=== PATIENT | male | born 1940 | race Two or more races ===

== ENCOUNTER 2024-07-12 21:29 | Inpatient (IN) | payer OTHER, MEDICAID ==
[~2024-07-12] VITALS: Ht 165.1 cm; Wt 88.5 kg
[2024-07-12 22:38] LABS: Basophils # (auto) 0 10 ^3/uL (0-0.2); Eosinophils # (auto) 0 10 ^3/uL (0-0.8); Lymphocytes # (auto) 0.4 10 ^3/uL (0.4-5.4); Mean Corpuscular Hgb Conc. 34.9 g/dL (32.0-36.0); Red Blood Cells 3.73 10^6/uL (4.5-5.90)
[2024-07-12 22:40] LABS: Basophils % (auto) 0.1 % (0.0-2.0); Hematocrit 40.1 % (41.0-53.0); Lymphocytes % (auto) 4.7 % (10.0-50.0); Mean Corpuscular Hemoglobin 37.4 pg (28.0-32.0); Mean Corpuscular Volume 107.3 fL (80.0-100.0); Monocytes # (auto) 0.6 10 ^3/uL (0-1.3); Monocytes % (auto) 7.2 % (0.0-12.0); Neutrophils # (auto) 7.3 10 ^3/uL (1.6-8.6); Platelet Count (auto) 168 10^3/uL (140-450); Red Cell Distribution Width 15.3 % (11.8-14.3); White Blood Cell 8.3 10^3/uL (4.4-10.8)
[2024-07-12 22:54] LABS: Alanine Aminotransferase 20 U/L (7-40); Albumin 4.3 g/dL (3.2-4.8); Alkaline Phosphatase 119 U/L (46-116); Anion Gap 8 (5-15); Aspartate Aminotransferase 20 U/L (13-40); BUN/Creatinine Ratio 17.4 (10.0-20.0); Blood Urea Nitrogen 24 mg/dL (9-23); Calcium 9.6 mg/dL (8.7-10.4); Carbon Dioxide 25 mmol/L (20-30); Chloride 100 mmol/L (98-107); Glucose 179 mg/dL (74-106); Lipase 26 U/L (12-53); Potassium 4.4 mmol/L (3.5-5.1); Sodium 133 mmol/L (136-145)
[2024-07-12 22:55] LABS: Bilirubin, Total 0.8 mg/dL (0.2-1.0); Total Protein 7.3 g/dL (5.7-8.2)
[2024-07-12 23:01] LABS: Lactic Acid w/Reflex 2.4 mmol/L (0.4-2.0)
[2024-07-12] MEDS: IPRATROPIUM BROM 0.5 MG/2.5ML INH SOL NEB ONE (23:29)
[2024-07-12] MEDS: ALBUTEROL SULF 2.5 MG/0.5ML(0.5%) NEB SOLN NEB ONE (23:29)
[2024-07-13] VITALS: PULSE 80; RESP 16; O2SAT 96
[2024-07-13] MEDS: ONDANSETRON HCL 4 MG/2 ML VIAL IV ONE (00:07)
[2024-07-13] MEDS: MORPHINE SULFATE 4 MG/ML SYR/VIAL IV ONE ×2 (00:08→04:00)
[2024-07-13] MEDS: cefTRIAXone 1GM/50ML D5W 50 ML IV ONE (04:00)
[2024-07-13] MEDS: AZITHROMYCIN 500MG/ 250ML 250 ML IV ONE (04:42)
[2024-07-13 07:30] VITALS: PULSE 73; RESP 12; O2SAT 95
[2024-07-13 13:27] LABS: Chloride 100 mmol/L (98-107); Potassium 4.5 mmol/L (3.5-5.1); Sodium 133 mmol/L (136-145)
[2024-07-13 13:28] LABS: Anion Gap 9 (5-15); Carbon Dioxide 24 mmol/L (20-30)
[2024-07-13] MEDS ORDERED: HYDROmorphone HCL 2 MG/ML VL/or syr IV PRN (13:30)
[2024-07-13 13:33] LABS: Glucose 192 mg/dL (74-106)
[2024-07-13 13:34] LABS: BUN/Creatinine Ratio 17.6 (10.0-20.0); Blood Urea Nitrogen 26 mg/dL (9-23)
[2024-07-13] MEDS: SODIUM CHLOR 0.9% PF (SALINE LOCK) 10ML VIAL/SYR IV SCH (14:00)
[2024-07-13] MEDS: SODIUM CHLORIDE 0.9% 1,000 ML IV ONE (16:05)
[2024-07-13 17:55] VITALS: BP 160/77; PULSE 81; RESP 20; TEMP 99.1; O2SAT 93
[2024-07-13] MEDS: HYDROcodone-ACET 5/325MG TAB PO PRN (18:48)
[2024-07-13 21:00] VITALS: BP 147/74; PULSE 78; RESP 20; TEMP 98.8; O2SAT 91
[2024-07-13] MEDS: ACETAMINOPHEN 325 MG TAB PO PRN (21:13)
[2024-07-14] VITALS (7 sets, daily range): BP systolic 102–156; BP diastolic 62–91; PULSE 54–72; RESP 16–20; TEMP 97.7–98.8; O2SAT 91–100
[2024-07-14 06:33] LABS: Basophils # (auto) 0 10 ^3/uL (0-0.2); Eosinophils # (auto) 0.1 10 ^3/uL (0-0.8); Nucleated Red Blood Cells % 0.1 %; White Blood Cell 5.8 10^3/uL (4.4-10.8)
[2024-07-14 06:35] LABS: Alanine Aminotransferase 17 U/L (7-40); Albumin 3.3 g/dL (3.2-4.8); Alkaline Phosphatase 86 U/L (46-116); Anion Gap 7 (5-15); Aspartate Aminotransferase 21 U/L (13-40); BUN/Creatinine Ratio 20.9 (10.0-20.0); Blood Urea Nitrogen 23 mg/dL (9-23); Calcium 8.6 mg/dL (8.7-10.4); Carbon Dioxide 28 mmol/L (20-30); Chloride 100 mmol/L (98-107); Glucose 107 mg/dL (74-106); Potassium 4.1 mmol/L (3.5-5.1); Sodium 135 mmol/L (136-145)
[2024-07-14 06:36] LABS: Total Protein 5.6 g/dL (5.7-8.2)
[2024-07-14 06:39] LABS: Basophils % (auto) 0.5 % (0.0-2.0); Hematocrit 33.2 % (41.0-53.0); Hemoglobin 11.8 g/dL (13.5-17.5); Lymphocytes % (auto) 34.9 % (10.0-50.0); Mean Corpuscular Hemoglobin 38.1 pg (28.0-32.0); Mean Corpuscular Hgb Conc. 35.6 g/dL (32.0-36.0); Mean Corpuscular Volume 107.1 fL (80.0-100.0); Monocytes # (auto) 0.6 10 ^3/uL (0-1.3); Monocytes % (auto) 9.8 % (0.0-12.0); Neutrophils # (auto) 3.1 10 ^3/uL (1.6-8.6); Neutrophils % (auto) 52.8 % (37.0-80.0); Platelet Count (auto) 134 10^3/uL (140-450)
[2024-07-14] MEDS: THIAMINE HCL 100 MG TAB PO SCH (09:54)
[2024-07-14] MEDS: FOLIC ACID 1 MG TAB PO SCH (09:54)
[2024-07-14] MEDS: PANTOPRAZOLE 40 MG/10 ML VIAL INJ IV SCH (09:54)
[2024-07-15] VITALS (7 sets, daily range): BP systolic 136–188; BP diastolic 69–85; PULSE 55–78; RESP 14–19; TEMP 97.7–98.4; O2SAT 93–98
[2024-07-15 03:35] LABS: Urine Blood Negative /uL (Negative); Urine Clarity Clear (Clear); Urine Color Light-Yellow (Yellow); Urine Protein, UAD Negative (Negative); Urine Specific Gravity 1.007 (1.001-1.035); Urine Urobilinogen Normal (Negative)
[2024-07-15 05:14] LABS: Urine Bacteria NONE SEEN /hpf (None Seen); Urine WBC 0 /hpf (0 - 3)
[2024-07-15 07:18] LABS: Alanine Aminotransferase 15 U/L (7-40); Alkaline Phosphatase 81 U/L (46-116); Anion Gap 5 (5-15); BUN/Creatinine Ratio 15.2 (10.0-20.0); Blood Urea Nitrogen 14 mg/dL (9-23); Calcium 8.7 mg/dL (8.7-10.4); Carbon Dioxide 25 mmol/L (20-30); Chloride 103 mmol/L (98-107); Glucose 97 mg/dL (74-106); Potassium 3.9 mmol/L (3.5-5.1); Sodium 133 mmol/L (136-145)
[2024-07-15 07:20] LABS: Albumin 3.4 g/dL (3.2-4.8); Aspartate Aminotransferase 29 U/L (13-40); Bilirubin, Total 0.7 mg/dL (0.2-1.0); Total Protein 5.7 g/dL (5.7-8.2)
[2024-07-15 07:26] LABS: Basophils # (auto) 0 10 ^3/uL (0-0.2); Basophils % (auto) 0.7 % (0.0-2.0); Eosinophils # (auto) 0.2 10 ^3/uL (0-0.8); Hematocrit 34.5 % (41.0-53.0); Hemoglobin 12.3 g/dL (13.5-17.5); Mean Corpuscular Hgb Conc. 35.5 g/dL (32.0-36.0); Neutrophils # (auto) 2.7 10 ^3/uL (1.6-8.6)
[2024-07-15 07:28] LABS: Eosinophils % (auto) 3.6 % (0.0-7.0); Lymphocytes # (auto) 1.8 10 ^3/uL (0.4-5.4); Lymphocytes % (auto) 34.9 % (10.0-50.0); Mean Corpuscular Hemoglobin 37.6 pg (28.0-32.0); Mean Corpuscular Volume 106.1 fL (80.0-100.0); Monocytes # (auto) 0.5 10 ^3/uL (0-1.3); Monocytes % (auto) 8.8 % (0.0-12.0); Platelet Count (auto) 150 10^3/uL (140-450); Red Blood Cells 3.26 10^6/uL (4.5-5.90); Red Cell Distribution Width 14.7 % (11.8-14.3); White Blood Cell 5.2 10^3/uL (4.4-10.8)
[2024-07-15] MEDS: hydrALAZINE HCL 20 MG/ML VL IV PRN (13:13)
[2024-07-15 15:29] LABS: Folate (Folic Acid) 6.41 ng/mL (>5.38)
[2024-07-15] MEDS: LORazepam 2MG/ML-1ML VIAL IV PRN (16:09)
[2024-07-15] MEDS: IOHEXOL 300 MG/ML 100ML BOTTLE IJ ONE (20:14)
[2024-07-16] VITALS (8 sets, daily range): BP systolic 145–161; BP diastolic 67–77; PULSE 67–88; RESP 16–19; TEMP 97.6–98.8; O2SAT 96–99
[2024-07-16 07:28] LABS: Basophils # (auto) 0 10 ^3/uL (0-0.2); Basophils % (auto) 0.6 % (0.0-2.0); Eosinophils # (auto) 0.2 10 ^3/uL (0-0.8); Eosinophils % (auto) 2.5 % (0.0-7.0); Lymphocytes # (auto) 1.4 10 ^3/uL (0.4-5.4)
[2024-07-16 07:30] LABS: Hematocrit 38.6 % (41.0-53.0); Hemoglobin 13.5 g/dL (13.5-17.5); Mean Corpuscular Hemoglobin 37.5 pg (28.0-32.0); Mean Corpuscular Hgb Conc. 35.1 g/dL (32.0-36.0); Mean Corpuscular Volume 106.8 fL (80.0-100.0); Monocytes # (auto) 0.5 10 ^3/uL (0-1.3); Monocytes % (auto) 7.1 % (0.0-12.0); Neutrophils # (auto) 5.2 10 ^3/uL (1.6-8.6); Neutrophils % (auto) 70.8 % (37.0-80.0); Platelet Count (auto) 177 10^3/uL (140-450); Red Blood Cells 3.61 10^6/uL (4.5-5.90); Red Cell Distribution Width 15.1 % (11.8-14.3); White Blood Cell 7.4 10^3/uL (4.4-10.8)
[2024-07-16 07:46] LABS: Alanine Aminotransferase 18 U/L (7-40); Albumin 3.5 g/dL (3.2-4.8); Alkaline Phosphatase 84 U/L (46-116); Anion Gap 7 (5-15); Aspartate Aminotransferase 21 U/L (13-40); BUN/Creatinine Ratio 13.3 (10.0-20.0); Blood Urea Nitrogen 13 mg/dL (9-23); Calcium 8.9 mg/dL (8.7-10.4); Carbon Dioxide 25 mmol/L (20-30); Chloride 105 mmol/L (98-107); Glucose 117 mg/dL (74-106); Potassium 3.9 mmol/L (3.5-5.1); Sodium 137 mmol/L (136-145)
[2024-07-16 07:47] LABS: Bilirubin, Total 0.6 mg/dL (0.2-1.0)
[2024-07-16] MEDS: NIFEdipine ER 30 MG TAB PO SCH (09:27)
[2024-07-16] MEDS: levoFLOXacin 500MG 100 ML IV SCH (17:29)
[2024-07-16] MEDS ORDERED: [UNRECOGNIZED DRUG - CODE] OP ×2 (19:22)
[2024-07-16] MEDS ORDERED: PRED1DRO OP (19:22)
[2024-07-16] MEDS: metroNIDAZOLE 500MG/100ML 100 ML IV SCH (19:58)
[2024-07-17] VITALS (8 sets, daily range): BP systolic 110–158; BP diastolic 47–66; PULSE 67–81; RESP 16–20; TEMP 97.6–98.1; O2SAT 94–100
[2024-07-17 06:25] LABS: Basophils # (auto) 0 10 ^3/uL (0-0.2); Eosinophils # (auto) 0.2 10 ^3/uL (0-0.8); Lymphocytes # (auto) 1.3 10 ^3/uL (0.4-5.4); Neutrophils # (auto) 3.5 10 ^3/uL (1.6-8.6); White Blood Cell 5.4 10^3/uL (4.4-10.8)
[2024-07-17 06:29] LABS: Alanine Aminotransferase 18 U/L (7-40); Albumin 3.5 g/dL (3.2-4.8); Alkaline Phosphatase 83 U/L (46-116); Anion Gap 7 (5-15); BUN/Creatinine Ratio 11.2 (10.0-20.0); Basophils % (auto) 0.5 % (0.0-2.0); Blood Urea Nitrogen 11 mg/dL (9-23); Calcium 9.2 mg/dL (8.7-10.4); Carbon Dioxide 25 mmol/L (20-30); Chloride 104 mmol/L (98-107); Eosinophils % (auto) 2.8 % (0.0-7.0); Glucose 126 mg/dL (74-106); Hematocrit 37.1 % (41.0-53.0); Hemoglobin 13.2 g/dL (13.5-17.5); Lymphocytes % (auto) 24.4 % (10.0-50.0); Mean Corpuscular Hemoglobin 37.7 pg (28.0-32.0); Mean Corpuscular Hgb Conc. 35.5 g/dL (32.0-36.0); Mean Corpuscular Volume 106.2 fL (80.0-100.0); Monocytes # (auto) 0.4 10 ^3/uL (0-1.3); Neutrophils % (auto) 64.3 % (37.0-80.0); Platelet Count (auto) 177 10^3/uL (140-450); Potassium 4.1 mmol/L (3.5-5.1); Red Blood Cells 3.49 10^6/uL (4.5-5.90); Red Cell Distribution Width 15.1 % (11.8-14.3); Sodium 136 mmol/L (136-145)
[2024-07-17 06:30] LABS: Aspartate Aminotransferase 15 U/L (13-40); Bilirubin, Total 0.6 mg/dL (0.2-1.0); Total Protein 5.9 g/dL (5.7-8.2)
[2024-07-17] MEDS: ONDANSETRON HCL 4 MG/2 ML VIAL IV PRN (19:57)
[2024-07-18] VITALS (8 sets, daily range): BP systolic 108–153; BP diastolic 56–70; PULSE 57–91; RESP 17–22; TEMP 97.6–98.9; O2SAT 91–99
[2024-07-18 06:03] LABS: Basophils # (auto) 0 10 ^3/uL (0-0.2); Eosinophils # (auto) 0.3 10 ^3/uL (0-0.8); Hematocrit 36.9 % (41.0-53.0); Lymphocytes # (auto) 1.6 10 ^3/uL (0.4-5.4); Mean Corpuscular Hemoglobin 37.4 pg (28.0-32.0); Monocytes # (auto) 0.5 10 ^3/uL (0-1.3)
[2024-07-18 06:08] LABS: Basophils % (auto) 0.8 % (0.0-2.0); Eosinophils % (auto) 5.3 % (0.0-7.0); Lymphocytes % (auto) 29.6 % (10.0-50.0); Mean Corpuscular Hgb Conc. 35.4 g/dL (32.0-36.0); Mean Corpuscular Volume 105.7 fL (80.0-100.0); Monocytes % (auto) 9.6 % (0.0-12.0); Neutrophils % (auto) 54.7 % (37.0-80.0); Nucleated Red Blood Cells % 0.1 %; Platelet Count (auto) 183 10^3/uL (140-450); Red Blood Cells 3.49 10^6/uL (4.5-5.90); Red Cell Distribution Width 14.9 % (11.8-14.3); White Blood Cell 5.5 10^3/uL (4.4-10.8)
[2024-07-18 06:22] LABS: Alanine Aminotransferase 10 U/L (7-40); Albumin 3.5 g/dL (3.2-4.8); Alkaline Phosphatase 84 U/L (46-116); Anion Gap 6 (5-15); Aspartate Aminotransferase 12 U/L (13-40); BUN/Creatinine Ratio 7.3 (10.0-20.0); Bilirubin, Total 0.5 mg/dL (0.2-1.0); Blood Urea Nitrogen 8 mg/dL (9-23); Calcium 9.2 mg/dL (8.7-10.4); Carbon Dioxide 25 mmol/L (20-30); Chloride 106 mmol/L (98-107); Glucose 110 mg/dL (74-106); Potassium 4.1 mmol/L (3.5-5.1); Sodium 137 mmol/L (136-145); Total Protein 5.9 g/dL (5.7-8.2)
[2024-07-18] MEDS: LIDOCAINE 5% TOPICAL PATCH TOP SCH (09:37)
[2024-07-18] MEDS: DOCUSATE SOD 100 MG CAP PO PRN (09:37)
[2024-07-19] VITALS (8 sets, daily range): BP systolic 126–157; BP diastolic 47–71; PULSE 75–108; RESP 18–20; TEMP 98.2–98.9; O2SAT 92–97
[2024-07-19] MEDS: ENOXAPARIN SOD 40 MG/0.4 ML SYRINGE SC SCH (15:55)
[2024-07-19] MEDS: CYANOCOBALAMIN (B-12) 1000 MCG/1 ML VIAL IM ONE (15:55)
[2024-07-19] MEDS: MORPHINE SULFATE INJ 2 MG/ml SYRG IV PRN (23:59)
[2024-07-20] VITALS (8 sets, daily range): BP systolic 116–146; BP diastolic 9–82; PULSE 57–98; RESP 16–20; TEMP 97.8–98.5; O2SAT 94–98
[2024-07-20] MEDS: PANTOPRAZOLE 40 MG TAB PO SCH (05:43)
[2024-07-20] MEDS: LACTULOSE 20Gm/30ML SOLN PO ONE (14:43)
[2024-07-20] MEDS: chlordiazePOXIDE HCL 25 MG CAP PO PRN (14:44)
[2024-07-20] MEDS: chlordiazePOXIDE HCL 25 MG CAP PO SCH (14:45)
[2024-07-20] MEDS: FOLIC ACID 1 MG, MULTIPLE VITAMIN 10 ML, MAGNESIUM SULF SDV 50% 8 MEQ, THIAMINE INJ 100... INJ SCH (18:05)
[2024-07-20] MEDS: LACTULOSE 20Gm/30ML SOLN PO SCH (22:03)
[2024-07-21] VITALS (20 sets, daily range): BP systolic 118–151; BP diastolic 62–95; PULSE 93–125; RESP 18–48; TEMP 97.4–98.5; O2SAT 95–98
[2024-07-21] MEDS: diphenhdrAMINE HCL 50 MG/1 ML VL IV PRN (11:12)
[2024-07-21 11:30] LABS: Basophils # (auto) 0 10 ^3/uL (0-0.2); Basophils % (auto) 0.1 % (0.0-2.0); Eosinophils # (auto) 0 10 ^3/uL (0-0.8); Eosinophils % (auto) 0.1 % (0.0-7.0); Hemoglobin 14.4 g/dL (13.5-17.5); Lymphocytes # (auto) 0.6 10 ^3/uL (0.4-5.4); Lymphocytes % (auto) 7.4 % (10.0-50.0); Mean Corpuscular Hemoglobin 36.9 pg (28.0-32.0); Mean Corpuscular Volume 105.3 fL (80.0-100.0); Monocytes # (auto) 0.5 10 ^3/uL (0-1.3); Monocytes % (auto) 5.8 % (0.0-12.0); Neutrophils # (auto) 6.7 10 ^3/uL (1.6-8.6); Neutrophils % (auto) 86.6 % (37.0-80.0); Platelet Count (auto) 215 10^3/uL (140-450); White Blood Cell 7.8 10^3/uL (4.4-10.8)
[2024-07-21 11:42] LABS: INR 1.1 (0.9-1.15); Partial Thromboplastin Time 29.8 SEC (24.5-34.5); Prothrombin Time 11.6 sec (9.3-11.8)
[2024-07-21 11:45] LABS: Alanine Aminotransferase 15 U/L (7-40); Albumin 3.9 g/dL (3.2-4.8); Alkaline Phosphatase 135 U/L (46-116); Anion Gap 16 (5-15); Aspartate Aminotransferase 31 U/L (13-40); BUN/Creatinine Ratio 5.9 (10.0-20.0); Blood Urea Nitrogen 7 mg/dL (9-23); Calcium 9.5 mg/dL (8.7-10.4); Chloride 105 mmol/L (98-107); Glucose 159 mg/dL (74-106); Potassium 3.7 mmol/L (3.5-5.1); Sodium 134 mmol/L (136-145)
[2024-07-21 11:46] LABS: Bilirubin, Total 0.7 mg/dL (0.2-1.0); Total Protein 6.8 g/dL (5.7-8.2)
[2024-07-21 11:48] LABS: Carbon Dioxide 13 mmol/L (20-30)
[2024-07-21 12:06] LABS: Vitamin D 25-Hydroxy 26 ng/mL (.); Vitamin D-2 25-Hydroxy <1.0 ng/mL (.); Vitamin D-3 25-Hydroxy 26 ng/mL (.)
[2024-07-21] MEDS: D5W/SOD CHL 0.45% 1,000 ML IV SCH (12:48)
[2024-07-21] MEDS: ACCU-CHEK COMFORT CURVE STRIP VI SCH (12:48)
[2024-07-21] MEDS: LACTULOSE 20Gm/30ML SOLN PO ONE (13:00)
[2024-07-21] MEDS: FLEET ENEMA(ADULT) 135 ML PR ONE ×2 (13:00→20:34)
[2024-07-21] MEDS: InsuLIN REG 1unit/0.01ml Soln (100units/ml) SC SCH (15:08)
[2024-07-21] MEDS: AMIODARONE BOLUS KIT 100 ML IV ONE (17:29)
[2024-07-21] MEDS: AMIODARONE 450mg/250ml AE 250 ML IV SCH ×2 (17:41→23:04)
[2024-07-21] MEDS: METOPROLOL TARTRATE 1MG/1ML-5ML VIAL IV SCH (18:00)
[2024-07-21] MEDS: KETOROLAC TROMETH 30 MG/ML 1ML VIAL IV PRN (20:55)
[2024-07-21] MEDS: ENOXAPARIN SOD 80 MG/0.8ML SYRINGE SC SCH (22:39)
[2024-07-22] VITALS (42 sets, daily range): BP systolic 91–182; BP diastolic 41–88; PULSE 71–104; RESP 10–40; TEMP 92.7–98.8; O2SAT 92–100
[2024-07-22] MEDS: ALBUTEROL SULF 2.5 MG/0.5ML(0.5%) NEB SOLN NEB PRN (04:15)
[2024-07-22] MEDS: IPRATROPIUM BROM 0.5 MG/2.5ML INH SOL NEB PRN (04:15)
[2024-07-22 05:17] LABS: Basophils # (auto) 0 10 ^3/uL (0-0.2); Eosinophils # (auto) 0 10 ^3/uL (0-0.8); Hemoglobin 15.4 g/dL (13.5-17.5); Lymphocytes # (auto) 0.5 10 ^3/uL (0.4-5.4); Monocytes # (auto) 0.5 10 ^3/uL (0-1.3); Platelet Count (auto) 213 10^3/uL (140-450); White Blood Cell 10.1 10^3/uL (4.4-10.8)
[2024-07-22 05:19] LABS: Hematocrit 43.2 % (41.0-53.0); Lymphocytes % (auto) 4.8 % (10.0-50.0); Mean Corpuscular Hemoglobin 37.5 pg (28.0-32.0); Mean Corpuscular Hgb Conc. 35.6 g/dL (32.0-36.0); Mean Corpuscular Volume 105.4 fL (80.0-100.0); Monocytes % (auto) 5.1 % (0.0-12.0); Neutrophils # (auto) 9.1 10 ^3/uL (1.6-8.6); Neutrophils % (auto) 90.1 % (37.0-80.0)
[2024-07-22 05:31] LABS: Alanine Aminotransferase 14 U/L (7-40); Albumin 3.6 g/dL (3.2-4.8); Alkaline Phosphatase 168 U/L (46-116); Anion Gap 15 (5-15); Aspartate Aminotransferase 31 U/L (13-40); Blood Urea Nitrogen 15 mg/dL (9-23); Calcium 8.9 mg/dL (8.7-10.4); Carbon Dioxide 15 mmol/L (20-30); Chloride 101 mmol/L (98-107); Glucose 83 mg/dL (74-106); Potassium 3.7 mmol/L (3.5-5.1); Sodium 131 mmol/L (136-145)
[2024-07-22 05:32] LABS: Bilirubin, Total 0.7 mg/dL (0.2-1.0); Total Protein 6.3 g/dL (5.7-8.2)
[2024-07-22] MEDS: FUROSEMIDE 20 MG/2 ML VIAL IV ONE (08:17)
[2024-07-22] MEDS: ACETAMINOPHEN IV 1000 MG/100ML (10MG/ML) IV PRN (09:08)
[2024-07-22 11:11] LABS: Magnesium 2.1 mg/dL (1.6-2.6)
[2024-07-22 12:08] LABS: Base Excess -11.8 mmol/L (-2.0-3.0)
[2024-07-22] MEDS: FLEET MINERAL OIL ENEMA 133 ML PR ONE (13:34)
[2024-07-22 14:46] LABS: Alanine Aminotransferase 22 U/L (7-40); Albumin 3.4 g/dL (3.2-4.8); Alkaline Phosphatase 202 U/L (46-116); Anion Gap 17 (5-15); Aspartate Aminotransferase 86 U/L (13-40); BUN/Creatinine Ratio 7.8 (10.0-20.0); Blood Urea Nitrogen 20 mg/dL (9-23); Calcium 8.5 mg/dL (8.7-10.4); Carbon Dioxide 13 mmol/L (20-30); Chloride 98 mmol/L (98-107); Glucose 132 mg/dL (74-106); Potassium 4.8 mmol/L (3.5-5.1); Sodium 128 mmol/L (136-145)
[2024-07-22 14:47] LABS: Total Protein 5.9 g/dL (5.7-8.2)
[2024-07-22] MEDS: NOREPINEPHRINE 8 MG/250ML KIT 250 ML IV SCH (15:30)
[2024-07-22] MEDS: SODIUM BICARB 8.4% 50Meq/50ml SYR Vial IV ONE ×6 (15:30→23:58)
[2024-07-22] MEDS: SODIUM CHLORIDE 0.9% 500 ML IV ONE (15:43)
[2024-07-22] MEDS: NOREPINEPHRINE 8 MG/250ML KIT 250 ML IV ONE (15:52)
[2024-07-22] MEDS: SODIUM BICARB 50mEq/50ml Vial 100 ML in D5W 5% 1,000 ML IV SCH (16:18)
[2024-07-22] MEDS ORDERED: fentaNYL CITRATE 100 MCG/2 ML VL ONE (18:13)
[2024-07-22] MEDS: fentaNYL Drip 2500mCg/250mlNS 250 ML IV SCH (21:45)
[2024-07-22 22:22] LABS: Base Excess -14.3 mmol/L (-2.0-3.0)
[2024-07-22 22:27] LABS: Basophils # (auto) 0 10 ^3/uL (0-0.2); Basophils % (auto) 0.2 % (0.0-2.0); Eosinophils # (auto) 0 10 ^3/uL (0-0.8); Eosinophils % (auto) 0.1 % (0.0-7.0); Hematocrit 34.8 % (41.0-53.0); Hemoglobin 11.8 g/dL (13.5-17.5); Lymphocytes # (auto) 0.6 10 ^3/uL (0.4-5.4); Lymphocytes % (auto) 14.3 % (10.0-50.0); Mean Corpuscular Hemoglobin 36.5 pg (28.0-32.0); Mean Corpuscular Volume 107.3 fL (80.0-100.0); Monocytes # (auto) 0.1 10 ^3/uL (0-1.3); Monocytes % (auto) 2.8 % (0.0-12.0); Neutrophils # (auto) 3.4 10 ^3/uL (1.6-8.6); Neutrophils % (auto) 82.6 % (37.0-80.0); Nucleated Red Blood Cells % 0.1 %; Platelet Count (auto) 169 10^3/uL (140-450); Red Blood Cells 3.25 10^6/uL (4.5-5.90); Red Cell Distribution Width 15.5 % (11.8-14.3); White Blood Cell 4.1 10^3/uL (4.4-10.8)
[2024-07-22] MEDS: SODIUM CHLORIDE 0.9% 1,000 ML IV SCH (22:40)
[2024-07-22 22:44] LABS: Alanine Aminotransferase 65 U/L (7-40); Albumin 2.5 g/dL (3.2-4.8); Anion Gap 13 (5-15); Aspartate Aminotransferase 405 U/L (13-40); BUN/Creatinine Ratio 9.4 (10.0-20.0); Blood Urea Nitrogen 21 mg/dL (9-23); Calcium 6.4 mg/dL (8.7-10.4); Carbon Dioxide 17 mmol/L (20-30); Glucose 135 mg/dL (74-106); Potassium 3.9 mmol/L (3.5-5.1)
[2024-07-22 22:45] LABS: Bilirubin, Total 1.3 mg/dL (0.2-1.0); Chloride 108 mmol/L (98-107); Sodium 138 mmol/L (136-145)
[2024-07-22] MEDS: ALBUMIN 25% 100 ML IV ONE (22:46)
[2024-07-22 23:01] LABS: Alkaline Phosphatase 149 U/L (46-116)
[2024-07-23] VITALS (109 sets, daily range): BP systolic 81–171; BP diastolic 31–82; PULSE 79–124; RESP 14–30; TEMP 94.8–100; O2SAT 94–100
[2024-07-23 02:08] LABS: Base Excess -6.4 mmol/L (-2.0-3.0)
[2024-07-23 04:50] LABS: Basophils # (auto) 0 10 ^3/uL (0-0.2); Basophils % (auto) 0.1 % (0.0-2.0); Eosinophils # (auto) 0 10 ^3/uL (0-0.8); Hemoglobin 12.4 g/dL (13.5-17.5); Mean Corpuscular Hemoglobin 36.4 pg (28.0-32.0); Monocytes # (auto) 0.2 10 ^3/uL (0-1.3); White Blood Cell 3.7 10^3/uL (4.4-10.8)
[2024-07-23 04:52] LABS: Hematocrit 36.2 % (41.0-53.0); Lymphocytes # (auto) 0.6 10 ^3/uL (0.4-5.4); Lymphocytes % (auto) 15.7 % (10.0-50.0); Mean Corpuscular Hgb Conc. 34.3 g/dL (32.0-36.0); Mean Corpuscular Volume 106.1 fL (80.0-100.0); Monocytes % (auto) 4.4 % (0.0-12.0); Neutrophils % (auto) 79.8 % (37.0-80.0); Nucleated Red Blood Cells % 0.1 %; Platelet Count (auto) 177 10^3/uL (140-450); Red Blood Cells 3.41 10^6/uL (4.5-5.90); Red Cell Distribution Width 15.6 % (11.8-14.3)
[2024-07-23 06:38] LABS: Base Excess -6.2 mmol/L (-2.0-3.0)
[2024-07-23 07:04] LABS: Alanine Aminotransferase 85 U/L (7-40); Albumin 2.5 g/dL (3.2-4.8); Alkaline Phosphatase 136 U/L (46-116); Anion Gap 11 (5-15); Aspartate Aminotransferase 442 U/L (13-40); BUN/Creatinine Ratio 10.1 (10.0-20.0); Bilirubin, Total 0.8 mg/dL (0.2-1.0); Blood Urea Nitrogen 24 mg/dL (9-23); Calcium 6.3 mg/dL (8.7-10.4); Carbon Dioxide 23 mmol/L (20-30); Chloride 107 mmol/L (98-107); Glucose 137 mg/dL (74-106); Potassium 3.7 mmol/L (3.5-5.1); Sodium 141 mmol/L (136-145); Total Protein 4.1 g/dL (5.7-8.2)
[2024-07-23] MEDS: PHENYLEPHRINE IV 250 ML IV SCH (07:45)
[2024-07-23] MEDS: FUROSEMIDE 40 MG/4 ML VIAL IV ONE (09:59)
[2024-07-23] MEDS ORDERED: ENOXAPARIN SOD 80 MG/0.8ML SYRINGE SC SCH (10:00)
[2024-07-23 13:08] LABS: Protein, Urine 115.8 mg/dL (0.0-11.9)
[2024-07-23 13:09] LABS: Protein, Urine 115.9 mg/dL (0.0-11.9)
[2024-07-23 13:10] LABS: Creatinine, Urine 80.08 mg/dL (30.0-125.0); Creatinine, Urine 80.83 mg/dL (30.0-125.0); Urine Protein/Creatinine Ratio 1.45
[2024-07-23 15:39] LABS: Hemoglobin 11.2 g/dL (13.5-17.5)
[2024-07-23 15:41] LABS: Hematocrit 32.5 % (41.0-53.0)
[2024-07-23] MEDS: BUMETANIDE 2.5mg/10ml (0.25 mg/ml) INJ IV ONE (15:58)
[2024-07-23 16:15] LABS: Urine Amorphous Crystal FEW /hpf (None Seen); Urine Bacteria FEW /hpf (None Seen); Urine Blood 3+ /uL (Negative); Urine Clarity Ex.Turbid (Clear); Urine Color Dark-Orange (Yellow); Urine Mucus FEW (None Seen); Urine Protein, UAD 1+ (Negative); Urine Specific Gravity 1.025 (1.001-1.035); Urine Urobilinogen Normal (Negative); Urine WBC 31 /hpf (0 - 3)
[2024-07-23] MEDS: DEXTROSE (50%) 50ML SYRG IV PRN (18:57)
[2024-07-23] MEDS ORDERED: TPN PER PHARMACY 0 ML IV SCH (20:15)
[2024-07-23] MEDS: AMINO ACID INFUSION IN D10W 1,000 ML IV SCH (20:30)
[2024-07-23] MEDS: CALCIUM GLUC 1,000mg/50ml-NS 50 ML IV SCH (21:15)
[2024-07-24] VITALS (104 sets, daily range): BP systolic 77–166; BP diastolic 27–66; PULSE 86–131; RESP 8–20; TEMP 98.2–99.5; O2SAT 94–100
[2024-07-24 03:43] LABS: Hematocrit 24.6 % (41.0-53.0)
[2024-07-24 03:45] LABS: Hemoglobin 8.5 g/dL (13.5-17.5); Mean Corpuscular Hemoglobin 37.1 pg (28.0-32.0); Mean Corpuscular Hgb Conc. 34.5 g/dL (32.0-36.0); Mean Corpuscular Volume 107.6 fL (80.0-100.0); Platelet Count (auto) 135 10^3/uL (140-450); Red Blood Cells 2.28 10^6/uL (4.5-5.90); Red Cell Distribution Width 16.2 % (11.8-14.3); White Blood Cell 5.9 10^3/uL (4.4-10.8)
[2024-07-24 03:52] LABS: Basophils % (manual) 0 (0.0-2.0); Blast Cells 0; Eosinophils % (manual) 0 (0-7); Metamyelocytes % 0; Promyelocytes % 0; Reactive Lymphocytes 0
[2024-07-24 04:02] LABS: Alanine Aminotransferase 75 U/L (7-40); Albumin 1.9 g/dL (3.2-4.8); Alkaline Phosphatase 96 U/L (46-116); Anion Gap 11 (5-15); Aspartate Aminotransferase 249 U/L (13-40); BUN/Creatinine Ratio 10.4 (10.0-20.0); Bilirubin, Total 0.5 mg/dL (0.2-1.0); Blood Urea Nitrogen 31 mg/dL (9-23); Carbon Dioxide 18 mmol/L (20-30); Chloride 111 mmol/L (98-107); Glucose 144 mg/dL (74-106); Magnesium 1.4 mg/dL (1.6-2.6); Phosphorus 6.2 mg/dL (2.4-5.1); Potassium 3.2 mmol/L (3.5-5.1); Sodium 140 mmol/L (136-145); Total Protein 3.2 g/dL (5.7-8.2)
[2024-07-24 04:04] LABS: Calcium 5.7 mg/dL (8.7-10.4)
[2024-07-24] MEDS: POTASSIUM CHL 20MEQ/100ML 100 ML IV ONE (05:30)
[2024-07-24] MEDS: CALCIUM GLUC 1,000mg/50ml-NS 50 ML IV SCH (05:40)
[2024-07-24] MEDS: MAGNESIUM SULFATE 1GM/100ML 100 ML IV SCH (05:55)
[2024-07-24 06:38] LABS: Band Neutrophils % (manual) 15; Lymphocytes % (manual) 20 (10.0-50.0); Macrocytosis Moderate; Monocytes % (manual) 6 (0-12); Myelocytes % 1; Platelet Estimate Decreased
[2024-07-24 06:39] LABS: Anisocytosis Slight; Large Platelets FEW
[2024-07-24] MEDS ORDERED: DEXTROSE (50%) 50ML SYRG IV SCH (09:45)
[2024-07-24] MEDS ORDERED: ENOXAPARIN SOD 30 MG/0.3 ML SYRINGE SC SCH (10:00)
[2024-07-24] MEDS: SODIUM BICARB 8.4% 50Meq/50ml SYR Vial IV ONE (10:04)
[2024-07-24] MEDS: CEFEPIME 2GM/50ML NS 50 ML IV SCH (10:18)
[2024-07-24] MEDS: InsuLIN REG 1unit/0.01ml Soln (100units/ml) SC SCH (11:39)
[2024-07-24] MEDS: ACCU-CHEK COMFORT CURVE STRIP VI SCH (11:40)
[2024-07-24] MEDS: BUMETANIDE 2.5mg/10ml (0.25 mg/ml) INJ IV ONE (14:54)
[2024-07-24] MEDS: VASOPRESSIN 20 UNITS in SODIUM CHL 0.9% 99 ML IV SCH (17:27)
[2024-07-24] MEDS: BUMETANIDE 2.5mg/10ml (0.25 mg/ml) INJ IV SCH (18:10)
[2024-07-24] MEDS: POTASSIUM ACETATE IV NR (20:00)
[2024-07-24] MEDS: CALCIUM GLUC IV NR (20:00)
[2024-07-24] MEDS: [UNRECOGNIZED DRUG - OTHER] IV NR (20:00)
[2024-07-24] MEDS: FAT EMULSION IV NR (20:00)
[2024-07-25] VITALS (107 sets, daily range): BP systolic 95–160; BP diastolic 24–77; PULSE 81–117; RESP 13–31; TEMP 98.2–99.1; O2SAT 89–98
[2024-07-25 04:42] LABS: Hemoglobin 8.5 g/dL (13.5-17.5); Mean Corpuscular Volume 107.9 fL (80.0-100.0); Platelet Count (auto) 106 10^3/uL (140-450)
[2024-07-25 04:45] LABS: Mean Corpuscular Hemoglobin 36.7 pg (28.0-32.0); Red Blood Cells 2.32 10^6/uL (4.5-5.90); Red Cell Distribution Width 16.5 % (11.8-14.3); White Blood Cell 4.1 10^3/uL (4.4-10.8)
[2024-07-25 04:47] LABS: Alanine Aminotransferase 72 U/L (7-40); Alkaline Phosphatase 91 U/L (46-116); Anion Gap 9 (5-15); BUN/Creatinine Ratio 12.5 (10.0-20.0); Calcium 7.1 mg/dL (8.7-10.4); Carbon Dioxide 20 mmol/L (20-30); Chloride 110 mmol/L (98-107); Glucose 165 mg/dL (74-106); Magnesium 1.8 mg/dL (1.6-2.6); Potassium 3.7 mmol/L (3.5-5.1); Sodium 139 mmol/L (136-145)
[2024-07-25 04:48] LABS: Albumin 1.9 g/dL (3.2-4.8); Aspartate Aminotransferase 170 U/L (13-40); Phosphorus 5.5 mg/dL (2.4-5.1)
[2024-07-25 04:49] LABS: Total Protein 3.4 g/dL (5.7-8.2)
[2024-07-25 04:52] LABS: Blood Urea Nitrogen 41 mg/dL (9-23)
[2024-07-25 04:53] LABS: Bilirubin, Total 0.6 mg/dL (0.2-1.0)
[2024-07-25 05:06] LABS: Basophils % (manual) 0 (0.0-2.0); Blast Cells 0; Metamyelocytes % 0; Promyelocytes % 0; Reactive Lymphocytes 0
[2024-07-25] MEDS: PANTOPRAZOLE 40 MG/10 ML VIAL INJ IV SCH (06:10)
[2024-07-25] MEDS: NOREPINEPHRINE 8 MG/250ML KIT 0 ML IV ONE (06:11)
[2024-07-25 06:44] LABS: Band Neutrophils % (manual) 7; Eosinophils % (manual) 1 (0-7); Lymphocytes % (manual) 20 (10.0-50.0); Monocytes % (manual) 11 (0-12); Myelocytes % 4
[2024-07-25 06:45] LABS: Anisocytosis Slight; Macrocytosis Moderate; Platelet Estimate Decreased
[2024-07-25 07:47] LABS: Base Excess -8.4 mmol/L (-2.0-3.0)
[2024-07-25] MEDS: SODIUM BICARB 8.4% 50Meq/50ml SYR Vial IV ONE (09:15)
[2024-07-25] MEDS: ALBUMIN 25% 100 ML IV ONE (09:16)
[2024-07-25] MEDS: cefTRIAXone 1GM/50ML D5W 50 ML IV ONE (10:49)
[2024-07-25] MEDS: MAGNESIUM SULFATE 1GM/100ML 100 ML IV ONE (10:50)
[2024-07-25 11:09] LABS: Base Excess -7.7 mmol/L (-2.0-3.0)
[2024-07-25] MEDS: PHENYLEPHRINE INJ 80 MG in SODIUM CHL 0.9% 242 ML IV SCH (12:17)
[2024-07-25] MEDS: NOREPINEPHRINE BITARTRATE 32 MG in SODIUM CHL 0.9% 218 ML IV SCH (12:17)
[2024-07-25] MEDS: SODIUM BICARB 50mEq/50ml Vial 150 ML in D5W 5% 1,000 ML IV SCH (15:32)
[2024-07-25] MEDS: BUMETANIDE INJECTION 25 MG in GIVE UN-DILUTED 0 ML IV SCH (16:31)
[2024-07-25] MEDS: ALBUMIN 25% 100 ML IV SCH (16:49)
[2024-07-25] MEDS: TPN PER PHARMACY IV NR (20:11)
[2024-07-26] VITALS (114 sets, daily range): BP systolic 11–169; BP diastolic 35–74; PULSE 81–118; RESP 14–42; TEMP 98.1–99.1; O2SAT 93–100
[2024-07-26 04:34] LABS: Basophils # (auto) 0 10 ^3/uL (0-0.2); Basophils % (auto) 0.1 % (0.0-2.0); Eosinophils # (auto) 0.1 10 ^3/uL (0-0.8); Hematocrit 20.8 % (41.0-53.0); Hemoglobin 7.3 g/dL (13.5-17.5); Lymphocytes # (auto) 0.8 10 ^3/uL (0.4-5.4); Lymphocytes % (auto) 17.1 % (10.0-50.0); Mean Corpuscular Hemoglobin 36.8 pg (28.0-32.0); Mean Corpuscular Hgb Conc. 35.1 g/dL (32.0-36.0); Mean Corpuscular Volume 104.9 fL (80.0-100.0); Monocytes # (auto) 0.4 10 ^3/uL (0-1.3); Monocytes % (auto) 9.7 % (0.0-12.0); Neutrophils # (auto) 3.2 10 ^3/uL (1.6-8.6); Neutrophils % (auto) 71.1 % (37.0-80.0); Nucleated Red Blood Cells % 1.8 %; Red Blood Cells 1.99 10^6/uL (4.5-5.90); Red Cell Distribution Width 16.2 % (11.8-14.3); White Blood Cell 4.5 10^3/uL (4.4-10.8)
[2024-07-26 04:53] LABS: Alanine Aminotransferase 49 U/L (7-40); Albumin 2.7 g/dL (3.2-4.8); Alkaline Phosphatase 77 U/L (46-116); Anion Gap 8 (5-15); Aspartate Aminotransferase 97 U/L (13-40); BUN/Creatinine Ratio 14.8 (10.0-20.0); Blood Urea Nitrogen 43 mg/dL (9-23); Calcium 7.9 mg/dL (8.7-10.4); Carbon Dioxide 26 mmol/L (20-30); Chloride 106 mmol/L (98-107); Glucose 161 mg/dL (74-106); Sodium 140 mmol/L (136-145)
[2024-07-26 04:54] LABS: Bilirubin, Total 1.1 mg/dL (0.2-1.0); Total Protein 4.2 g/dL (5.7-8.2)
[2024-07-26 05:19] LABS: Platelet Count (auto) 121 10^3/uL (140-450)
[2024-07-26 05:20] LABS: Macrocytosis Slight; Platelet Estimate Decreased
[2024-07-26 07:20] LABS: Pre Albumin < 5.0 md/dL (10.0-40.0)
[2024-07-26] MEDS: POTASSIUM CHL 20MEQ/100ML 100 ML IV SCH ×2 (08:17→12:00)
[2024-07-26] MEDS: cefTRIAXone 1GM/50ML D5W 50 ML IV SCH (08:25)
[2024-07-26] MEDS: SODIUM BICARB 50mEq/50ml Vial 150 ML in D5W 5% 1,000 ML IV SCH (08:26)
[2024-07-26 08:51] LABS: Base Excess -0.8 mmol/L (-2.0-3.0)
[2024-07-26] MEDS ORDERED: ENOXAPARIN SOD 100 MG/1 ML SYRINGE SC SCH (10:00)
[2024-07-26] MEDS: ALBUMIN 25% 100 ML IV SCH (15:15)
[2024-07-26] MEDS: PROPOFOL 100 ML IV SCH (19:45)
[2024-07-26] MEDS: TPN*HIGH CONC* PER PHARMACY IV NR (21:04)
[2024-07-27] VITALS (95 sets, daily range): BP systolic 95–224; BP diastolic 31–92; PULSE 78–117; RESP 16–33; TEMP 98.2–99.5; O2SAT 94–99
[2024-07-27] MEDS: POTASSIUM CHL 20MEQ/100ML 100 ML IV SCH (00:20)
[2024-07-27 05:28] LABS: Alanine Aminotransferase 36 U/L (7-40); Albumin 2.9 g/dL (3.2-4.8); Alkaline Phosphatase 71 U/L (46-116); Anion Gap 7 (5-15); Aspartate Aminotransferase 60 U/L (13-40); BUN/Creatinine Ratio 16.8 (10.0-20.0); Blood Urea Nitrogen 44 mg/dL (9-23); Calcium 8.5 mg/dL (8.7-10.4); Carbon Dioxide 28 mmol/L (20-30); Chloride 105 mmol/L (98-107); Glucose 143 mg/dL (74-106); Potassium 3.6 mmol/L (3.5-5.1); Sodium 140 mmol/L (136-145); Triglycerides 69 mg/dL (< 150)
[2024-07-27 05:29] LABS: Bilirubin, Total 2.7 mg/dL (0.2-1.0); Phosphorus 1.9 mg/dL (2.4-5.1); Total Protein 4.5 g/dL (5.7-8.2)
[2024-07-27 07:12] LABS: Base Excess 3.3 mmol/L (-2.0-3.0)
[2024-07-27 08:24] LABS: Basophils # (auto) 0 10 ^3/uL (0-0.2); Eosinophils # (auto) 0.1 10 ^3/uL (0-0.8); Hematocrit 27.2 % (41.0-53.0); Hemoglobin 9.6 g/dL (13.5-17.5); Lymphocytes # (auto) 0.9 10 ^3/uL (0.4-5.4); Monocytes # (auto) 0.4 10 ^3/uL (0-1.3); Platelet Count (auto) 40 10^3/uL (140-450); Red Blood Cells 2.87 10^6/uL (4.5-5.90); White Blood Cell 5.6 10^3/uL (4.4-10.8)
[2024-07-27 08:25] LABS: Basophils % (auto) 0.2 % (0.0-2.0); Eosinophils % (auto) 1.7 % (0.0-7.0); Lymphocytes % (auto) 15.3 % (10.0-50.0); Mean Corpuscular Hemoglobin 33.3 pg (28.0-32.0); Mean Corpuscular Hgb Conc. 35.2 g/dL (32.0-36.0); Mean Corpuscular Volume 94.7 fL (80.0-100.0); Monocytes % (auto) 6.9 % (0.0-12.0); Neutrophils # (auto) 4.3 10 ^3/uL (1.6-8.6); Neutrophils % (auto) 75.9 % (37.0-80.0); Red Cell Distribution Width 24.2 % (11.8-14.3)
[2024-07-27 08:57] LABS: Anisocytosis Slight
[2024-07-27 08:58] LABS: Ovalocytes FEW; Platelet Estimate Decreased; Tear Drop Cells FEW
[2024-07-27] MEDS: POTASSIUM PHOSPHATE 22 MEQ in SODIUM CHL 0.9% 100 ML IV ONE (10:12)
[2024-07-27] MEDS: TPN*HIGH CONC* PER PHARMACY IV NR (20:06)
== END 2024-07-27 21:47 | disposition short-term general hospital (02) | DRG 329 ==
LOC: ER 21:29 → OVERFLOW 07-13 13:26 → EAST 07-13 15:19 → TELE-EAST 07-21 15:49 → DOU IN ICU 07-21 17:10 → ICU WEST 07-22 21:12
PROVIDERS: ADMIT Internal Medicine; ATTEND Internal Medicine Pulmonary Disease
PROC: 02HV33Z Insertion of Infusion Device into Superior Vena Cava, Percutaneous Approach (ICD-10-PCS; 2024-07-13)
PROC: B548ZZA Ultrasonography of Superior Vena Cava, Guidance (ICD-10-PCS; 2024-07-13)
PROC: 0D9670Z Drainage of Stomach with Drainage Device, Via Natural or Artificial Opening (ICD-10-PCS; principal; 2024-07-21)
PROC: 5A1955Z Respiratory Ventilation, Greater than 96 Consecutive Hours (ICD-10-PCS; 2024-07-22)
PROC: 0BH17EZ Insertion of Endotracheal Airway into Trachea, Via Natural or Artificial Opening (ICD-10-PCS; 2024-07-22)
PROC: 0DTE0ZZ Resection of Large Intestine, Open Approach (ICD-10-PCS; 2024-07-22)
PROC: 30233N1 Transfusion of Nonautologous Red Blood Cells into Peripheral Vein, Percutaneous Approach (ICD-10-PCS; 2024-07-26)
DX: K63.89 Other specified diseases of intestine (principal); A41.9 Sepsis, unspecified organism; J96.01 Acute respiratory failure with hypoxia; G93.41 Metabolic encephalopathy; R65.21 Severe sepsis with septic shock; I62.01 Nontraumatic acute subdural hemorrhage; G93.5 Compression of brain; I63.9 Cerebral infarction, unspecified; E87.4 Mixed disorder of acid-base balance; K55.9 Vascular disorder of intestine, unspecified; S22.32XA Fracture of one rib, left side, initial encounter for closed fracture; J98.11 Atelectasis; J90 Pleural effusion, not elsewhere classified; F10.239 Alcohol dependence with withdrawal, unspecified; G93.1 Anoxic brain damage, not elsewhere classified; D68.59 Other primary thrombophilia; I82.611 Acute embolism and thrombosis of superficial veins of right upper extremity; I82.613 Acute embolism and thrombosis of superficial veins of upper extremity, bilateral; M46.26 Osteomyelitis of vertebra, lumbar region; N17.9 Acute kidney failure, unspecified; I25.10 Atherosclerotic heart disease of native coronary artery without angina pectoris; E66.9 Obesity, unspecified; G89.29 Other chronic pain; M51.26 Other intervertebral disc displacement, lumbar region; K56.41 Fecal impaction; I48.91 Unspecified atrial fibrillation; F03.90 Unspecified dementia, unspecified severity, without behavioral disturbance, psychotic disturbance, mood disturbance, and anxiety; Y90.9 Presence of alcohol in blood, level not specified; N18.9 Chronic kidney disease, unspecified; E53.8 Deficiency of other specified B group vitamins; W18.39XA Other fall on same level, initial encounter; F17.200 Nicotine dependence, unspecified, uncomplicated; I12.9 Hypertensive chronic kidney disease with stage 1 through stage 4 chronic kidney disease, or unspecified chronic kidney disease; E11.22 Type 2 diabetes mellitus with diabetic chronic kidney disease; Z79.4 Long term (current) use of insulin; Z68.32 Body mass index [BMI] 32.0-32.9, adult; Z82.49 Family history of ischemic heart disease and other diseases of the circulatory system; Z74.01 Bed confinement status; Y93.89 Activity, other specified; Y92.89 Other specified places as the place of occurrence of the external cause; Y99.8 Other external cause status
CPT/HCPCS: 36415; 36600; 70450; 71045; 71250; 72148; 73030; 74018; 74176; 74177; 76775; 76937; 80048; 80053; 80061; 81001; 82040; 82140; 82306; 82378; 82570; 82607; 82746; 82805; 82962; 83036; 83605; 83615; 83690; 83735; 83880; 83935; 84100; 84132; 84156; 84300; 84443; 84478; 84484; 85007; 85014; 85018; 85025; 85027; 85610; 85730; 86850; 86900; 86901; 86920; 87040; 87070; 87077; 87081; 87186; 87205; 93306; 93970; 94002; 94003; 94640; 97110; 97116; 97163; 97530; G0378; J0131; J0692; J1815; J1885; J1956; J2405; J2470; J3480; J3490; P9047